=== PATIENT | male | born 1970 | race Caucasian/White ===

== ENCOUNTER 2018-12-16 09:18 | Outpatient (CLI) | payer BC, SELFPAY ==
[2018-12-16 11:10] LABS: Cholesterol 200 mg/dL (50-200); HDL Cholesterol 37 mg/dL (40-60); LDL CHOLESTEROL 143 mg/dL (<100); Triglyceride 107 mg/dL (30-150)
== END 2018-12-16 09:38 ==
PROVIDERS: PCP Family Medicine; Visit Provider Family Medicine
DX: E78.5 Hyperlipidemia, unspecified (principal)
CPT/HCPCS: 36415; 80061; 83721

== ENCOUNTER 2020-03-22 11:22 | Outpatient (CLI) | payer BC, SELFPAY ==
--- NOTE | 2020-03-22 11:00 | DI.RAD_ITS ---
EXAM: XR SHOULDER RT COMPLETE 2+V CLINICAL HISTORY: right shoulder pain. TECHNIQUE: 2D digital imaging was performed. COMPARISON: No exams were available for comparison FINDINGS: BONES: No acute fracture is present. No bony destructive lesion is seen. JOINTS: No dislocation present. Mild spurring at the AC joint and inferior glenoid. SOFT TISSUE: Normal. IMPRESSION: Mild degenerative changes. DATA REPOSITORY: RADIATION DOSE DELIVERED:
== END 2020-03-22 11:42 ==
PROVIDERS: PCP Family Medicine; Referring Provider Family Medicine; Visit Provider Student in an Organized Health Care Education/Training Program
DX: M25.511 Pain in right shoulder (principal); M19.011 Primary osteoarthritis, right shoulder
CPT/HCPCS: 73030

== ENCOUNTER 2022-06-18 03:46 | Outpatient (CLI) | payer BC, SELFPAY ==
[2022-06-18 12:57] LABS: Calculated LDL 154 mg/dL (<100); Cholesterol 206 mg/dL (<200); Glucose 104 mg/dL (74-106); HDL Cholesterol 43 mg/dL (40-60); Triglyceride 49 mg/dL (<150)
== END 2022-06-18 03:47 | disposition home or self-care (01) ==
LOC: LOS 03:46
PROVIDERS: PCP Family Medicine; Visit Provider Family Medicine
DX: E78.5 Hyperlipidemia, unspecified (principal); R73.9 Hyperglycemia, unspecified
CPT/HCPCS: 36415; 80061; 82947

== ENCOUNTER 2022-10-17 04:13 | Outpatient (CLI) | payer BC, SELFPAY ==
[2022-10-17 22:51] LABS: PSA, Screening 0.6 ng/mL (<=3.5)
== END 2022-10-17 04:14 | disposition home or self-care (01) ==
LOC: LOS 04:13
PROVIDERS: PCP Family Medicine; Visit Provider Family Medicine
DX: Z12.5 Encounter for screening for malignant neoplasm of prostate (principal)
CPT/HCPCS: 36415; 84153

== ENCOUNTER 2023-06-25 08:46 | Outpatient (CLI) | payer BC, SELFPAY ==
[2023-06-25 12:29] LABS: CREATININE 1.1 mg/dL (0.70-1.30); Calculated LDL 131 mg/dL (<100); Cholesterol 193 mg/dL (<200); Estimated GFR 81.28 (mL/min/1.73m2); HDL Cholesterol 52 mg/dL (40-60); Potassium 3.9 mmol/L (3.5-5.1); Triglyceride 53 mg/dL (<150)
== END 2023-06-25 08:47 | disposition home or self-care (01) ==
LOC: LOS 08:46
PROVIDERS: PCP Family Medicine; Referring Provider Family Medicine; Visit Provider Family Medicine
DX: I10 Essential (primary) hypertension (principal); E78.5 Hyperlipidemia, unspecified
CPT/HCPCS: 36415; 80061; 82565; 84132

== ENCOUNTER 2025-02-10 09:41 | Outpatient (CLI) | payer BC, SELFPAY ==
[2025-02-10 12:41] LABS: CREATININE 1.1 mg/dL (0.70-1.30); Calculated LDL 135 mg/dL (<100); Cholesterol 193 mg/dL (<200); Estimated GFR 80.27 (mL/min/1.73m2); HDL Cholesterol 41 mg/dL (>or=40); Potassium 3.8 mmol/L (3.5-5.1); Triglyceride 86 mg/dL (<150)
== END 2025-02-10 09:42 | disposition home or self-care (01) ==
LOC: LOS 09:41
PROVIDERS: PCP Family Medicine; Referring Provider Family Medicine; Visit Provider Family Medicine
DX: I10 Essential (primary) hypertension (principal); E78.5 Hyperlipidemia, unspecified
CPT/HCPCS: 36415; 80061; 82565; 84132